=== PATIENT | female | born 1945 ===

== ENCOUNTER 2017-12-02 12:37 | Emergency (ER) | payer MEDICARE ==
[2017-12-02 12:46] VITALS: TEMP 97.5
[2017-12-02] MEDS ORDERED: Acetaminophen-Codeine 300/30 mg Tab PO STA (12:56)
--- NOTE | 2017-12-02 12:58 | C.PDOC ---
History Of Present Illness Patient sent to ED from outpatient Xray for abnormal Xray. As per patient, she fell on saturday, was sent for Xrays by PMD Dr. Lucero Villatoro. Xrays show left proximal humerus frature, PMD was called by radiology, who instructed that patient be sent to ER. Patient admits to left upper arm pain, has been taking tylenol for pain (none today). She denies other injuries. Time Seen by Provider: 12/02/17 12:53 Chief Complaint (Nursing): Upper Extremity Problem/Injury History Per: Patient, Family (grandson at bedside ) History/Exam Limitations: no limitations Onset/Duration Of Symptoms: Days (3) Current Symptoms Are (Timing): Still Present Quality: "Pain" Severity: Moderate Past Medical History Reviewed: Historical Data, Nursing Documentation, Vital Signs Vital Signs: Last Vital Signs Temp 97.5 F L 12/02/17 12:42 Pulse 114 H 12/02/17 12:42 Resp 18 12/02/17 12:42 BP 170/97 H 12/02/17 12:42 Pulse Ox 99 12/02/17 13:04 - Medical History PMH: Hypercholesterolemia, Hyperthyroidism Family History: States: No Known Family Hx - Social History Hx Alcohol Use: No Hx Substance Use: No - Immunization History Hx Tetanus Toxoid Vaccination: No Hx Influenza Vaccination: No Hx Pneumococcal Vaccination: No Review Of Systems Except As Marked, All Systems Reviewed And Found Negative. Constitutional: Negative for: Fever, Chills Cardiovascular: Negative for: Chest Pain Respiratory: Negative for: Shortness of Breath Gastrointestinal: Negative for: Abdominal Pain Musculoskeletal: Positive for: Arm Pain (left upper arm pain ) Neurological: Negative for: Weakness, Numbness Physical Exam - Physical Exam Appears: Well, Non-toxic, In Acute Distress (in mild pain ) Eye(s): bilateral: Normal Inspection Oral Mucosa: Moist Cardiovascular: Rhythm Regular (tachycardic ) Respiratory: Normal Breath Sounds, No Rales, No Rhonchi, No Wheezing Extremity: No Normal ROM (limited at left shoulder ), Tenderness ((+) moderate swelling and TTP at left proximal humerus), Capillary Refill (< 2 sec all digits ), No Deformity Pulses: Left Radial: Normal, Right Radial: Normal Neurological/Psych: Oriented x3, Normal Sensation ED Course And Treatment O2 Sat by Pulse Oximetry: 99 (RA) Pulse Ox Interpretation: Normal Progress Note: Xrays reviewed, (+) for proximal humer fx. Patient placed in left shoulder sling, and PO tylenol #3 given. Disposition Counseled Patient/Family Regarding: Studies Performed, Diagnosis, Need For Followup, Rx Given - Disposition Referrals: [facility] [Outside] [facility] [Outside] [facility] [Outside] Yovany Bacon III, MD [Staff Provider] - Lucero Villatoro MD [Staff Provider] - Disposition: HOME/ ROUTINE Disposition Time: 13:30 Condition: STABLE Additional Instructions: FOLLOW UP WITH ORTHOPEDICS IN 1-2 DAYS KEEP ARM IN SLING AND ELEVATED USE PAIN MEDICATION NEEDED RETURN TO ER IF SYMPTOMS WORSEN Prescriptions: Acetaminophen with Codeine [Tylenol with Codeine #3 Tablet] 1 each PO Q6 PRN # 15 tablet PRN Reason: pain Instructions: Upper Arm Fracture Forms: [facility] (Nicaraguan) Print Language: HUNGARIAN - POA Present On Arrival: Falls Or Trauma - Clinical Impression Clinical Impression: Left humeral fracture
[2017-12-02] MEDS ORDERED: Acetaminophen-Codeine 300/30 mg Tab PO ONE (13:00)
[2017-12-02 13:17] VITALS: BP 150/90; PULSE 100; RESP 16; O2SAT 98
== END 2017-12-02 13:21 | disposition home or self-care (01) ==
LOC: C.ER 12:37
DX: S42.202A Unspecified fracture of upper end of left humerus, initial encounter for closed fracture (principal); W19.XXXA Unspecified fall, initial encounter; Y92.9 Unspecified place or not applicable